=== PATIENT | male | born 1950 | race Caucasian/White ===

== ENCOUNTER 2018-05-06 01:52 | Emergency (ER) | payer MEDICARE ==
[~2018-05-06] VITALS: Ht 172.7 cm; Wt 99.8 kg
[~2018-05-06 01:52] MED LIST: ACETAMINOPHEN325 M1 PO; ALPHA LIPOIC A300 MG; ALPHA LIPOIC AC50 M1; AMLODIPINE BESY10 MG PO; ASPIR 8181 MG PO; BYSTOLIC5 MG PO; CEPHALEXIN500 MG PO; CRANBERRY200 MG; DIOVAN HCT 3201 EAC1 PO; FENOFIBRATE145 MG PO; GINSENG100 M1; GLIPIZIDE PO; GLIPIZIDE5 MG PO; HYDRALAZINE HCL50 MG PO; INVOKANA PO; LEVEMIR100 UNIT/1 SQ; NORCO 10-325 T1 EACH PO; PGX PO; SAW PALMETTO450 MG PO; ST JOHNS WORT PO; VITAMIN C500 MG; VITAMIN D-32000 UNIT PO; VITAMIN E400 UNI4 PO; ZINC SULFATE220 MG PO
[2018-05-06] MEDS ORDERED: PRAVASTATIN SOD20 MG PO (02:28)
[2018-05-06] MEDS ORDERED: XARELTO20 MG PO (02:28)
[2018-05-06] MEDS ORDERED: LEVEMIR100 UNIT/1 SC (02:28)
[2018-05-06] MEDS ORDERED: PRIMIDONE50 MG PO (02:28)
[2018-05-06] MEDS ORDERED: METFORMIN HCL500 MG PO (02:28)
[2018-05-06] MEDS ORDERED: TOPIRAMATE25 MG PO (02:28)
[2018-05-06] MEDS ORDERED: METOPROLOL TART25 MG PO (02:28)
--- NOTE | 2018-05-06 04:05 | Diagnostic Imaging Report ---
History: Fall, pain Comparison studies:None Technique: Axial images were obtained from the brain and cervical spine. Coronal and sagittal images reconstructed from the axial data. Intravenous contrast: None Dose modulation, iterative reconstruction, and/or weight based adjustment of the mA/kV was utilized to reduce the radiation dose to as low as reasonably achievable. Findings: Head CT: Scalp/skull: No abnormalities. No fractures, blastic or lytic lesions. Brain sulci: Appropriate for age. Ventricles: Normal in size and configuration. No hydrocephalus. Extra-axial spaces: No masses. No fluid collections. Parenchyma: Cortical based hypodensity at the left parietal and posterior temporal lobes with associated volume loss. Chronic lacunar infarcts at the right striatocapsular and left subinsular regions. Scattered small T2/flair hyperintensities of the periventricular and deep white matter. No masses, hemorrhage or acute cortical vascular insults. Sellar/suprasellar region: No abnormalities. Craniocervical junction: Patent foramen magnum. No Chiari one malformation. Cervical spine CT: Fractures: None. Soft tissues: No gross abnormalities. Atlantoaxial articulation: Degenerative changes without acute abnormality. Alignment: Normal lordosis. No scoliosis. Cervicomedullary junction: No abnormalities. Patent foramen magnum. Vertebrae: No infection or neoplasm. Degenerative changes: Obliterated intervertebral space, sclerotic changes, posterior disc osteophyte complex, bilateral uncinate process hypertrophy and facet hypertrophy from C3 through C7 results in moderate to severe foraminal narrowing and moderate canal stenosis. Incidental findings: None. Impression: Head CT: 1. No acute intracranial abnormality. 2. Mild chronic microvascular ischemic changes of the white matter and diffuse volume loss 3. 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 Cervical spine CT: 1. No abnormalities. 2. Cannot exclude ligament, spinal cord and or vascular abnormalities on the basis of this examination. Signed by: DR Aguilar Guan M.D. on 05/06/2018 4:09 AM
[2018-05-06 04:27] VITALS: BP 138/86
== END 2018-05-06 04:35 | disposition home or self-care (01) ==
LOC: FSED 01:52
DX: M25.511 Pain in right shoulder (principal); M79.621 Pain in right upper arm; M25.521 Pain in right elbow; M54.12 Radiculopathy, cervical region; I10 Essential (primary) hypertension; E78.5 Hyperlipidemia, unspecified; I48.0 Paroxysmal atrial fibrillation; I69.998 Other sequelae following unspecified cerebrovascular disease
CPT/HCPCS: 70450; 72125; 80053; 81003; 82553; 84484; 85025; 99284